=== PATIENT | female | born 1985 | race Caucasian/White ===

== ENCOUNTER → 2024-07-24 | Outpatient (CLI) | payer BC ==
--- NOTE | 2024-07-24 16:42 | MM ---
Reason for Exam: Screening (asymptomatic). Baseline mammogram. Patient History: Menarche at age 12. First Full-Term at age 29. Late child-bearing (after 29). Currently using Hormonal Contraceptives, for 10 years. 2018, Excisional Biopsy on the Right side. Risk Values: Kriss 5 year model risk: 1.2%. NCI Lifetime model risk: 16.5%. Prior Study Comparison: Patient's first Mammogram. Tissue Density: There are scattered areas of fibroglandular density. Findings: Analyzed By CAD. Scar marker along the superior aspect of the right breast. No priors of the left breast are available for comparison. There is a lobulated mass upper outer quadrant left breast middle depth. On the MLO view, this has a more typical appearance of an intramammary lymph node. However, it appears more lobulated and elongated than expected on the CC view. An intramammary lymph node remains favored. 6 month follow-up recommended to ensure stability. Otherwise, no suspicious finding is identified. Overall Assessment: Probably benign, BI-RAD 3 Management: Diagnostic Mammogram of the left breast in 6 months. Patient should continue monthly self-breast exams. A clinical breast exam by your physician is recommended on an annual basis. This exam should not preclude additional follow-up of suspicious palpable abnormalities. Note on Kriss scores and lifetime risk: 1. A Kriss score greater than 3% is considered moderate risk. If this is the case, consider specialist referral to assess eligibility for a risk reducing agent. 2. If overall lifetime risk for the development of breast cancer is 20% or higher, the patient may qualify for future screening with alternating mammogram and breast MRI. [facility], , 07/24/2024 4:39 PM. Electronically signed and approved by: Aaron Dupree M.D. Radiologist
== END | disposition home or self-care (01) ==
LOC: RADMAMWWP 15:44 → MERGE 16:00
PROVIDERS: ATTEND Family Medicine
DX: Z12.31 Encounter for screening mammogram for malignant neoplasm of breast (principal); R92.323 Mammographic fibroglandular density, bilateral breasts; Z79.3 Long term (current) use of hormonal contraceptives
CPT/HCPCS: 77063; 77067